=== PATIENT | female | born 2000 | race African-American/Black ===

== ENCOUNTER 2023-06-14 06:25 | Emergency (ER) | payer OTHER ==
[2023-06-14] MEDS ORDERED: Dexamethasone 4 MG TAB ONE (06:44)
[2023-06-14] MEDS ORDERED: Ibuprofen 200 MG TAB ONE (06:44)
== END 2023-06-14 08:11 | disposition home or self-care (01) ==
LOC: ERS 06:25
DX: J02.9 Acute pharyngitis, unspecified (principal)
CPT/HCPCS: 87081; 87430; 99283; J8540

== ENCOUNTER 2023-09-12 22:14 | Emergency (ER) | payer OTHER | END 2023-09-12 23:39 | disposition left against medical advice (07) | LOC: ERS 22:14 | DX: Z53.21 Procedure and treatment not carried out due to patient leaving prior to being seen by health care provider (principal) ==